=== PATIENT | male | born 1955 | race Two or more races ===

== ENCOUNTER 2019-03-17 03:12 | Emergency (ER) | payer OTHER ==
[~2019-03-17] VITALS: Ht 162.6 cm; Wt 99.8 kg
[~2019-03-17 03:12] MED LIST: COZAAR50 MG
[2019-03-17] MEDS ORDERED: SYNTHROID125 MCG (03:36)
== END 2019-03-17 09:48 | disposition home or self-care (01) ==
LOC: ER 03:12 → CPU-OBS 03:15 → ER 03:15
DX: M94.0 Chondrocostal junction syndrome [Tietze] (principal); R07.89 Other chest pain
CPT/HCPCS: G0378; G0379; 93005

== ENCOUNTER 2019-05-26 08:30 | Outpatient (CLI) | payer OTHER ==
[~2019-05-26 08:30] MED LIST changes: +SYNTHROID125 MCG
== END 2019-05-26 08:39 | disposition home or self-care (01) ==
LOC: RX STUDY 08:30
DX: K21.9 Gastro-esophageal reflux disease without esophagitis (principal)

== ENCOUNTER 2019-08-25 14:19 | Emergency (ER) | payer OTHER ==
[~2019-08-25] VITALS: Ht 170.2 cm; Wt 101.6 kg
[2019-08-25] MEDS ORDERED: DICLOFENAC SODI75 MG PO (18:00)
== END 2019-08-25 18:10 | disposition home or self-care (01) ==
LOC: ER 14:19
DX: S40.011A Contusion of right shoulder, initial encounter (principal); S60.222A Contusion of left hand, initial encounter; W18.39XA Other fall on same level, initial encounter; Y93.89 Activity, other specified; Y92.481 Parking lot as the place of occurrence of the external cause; Y99.8 Other external cause status

== ENCOUNTER → 2020-03-06 | Emergency (ER) | payer OTHER ==
[~2020-03-06] MED LIST changes: +DICLOFENAC SODI75 MG PO
== END | disposition left against medical advice (07) ==
LOC: ER 10:26
DX: Z53.21 Procedure and treatment not carried out due to patient leaving prior to being seen by health care provider (principal)